=== PATIENT | female | born 1985 | race Caucasian/White ===

== ENCOUNTER 2021-05-07 12:52 | Emergency (ER) | payer MEDICARE, OTHER ==
[2021-05-07 12:56] VITALS: TEMP 98.3
[2021-05-07] MEDS ORDERED: ONDANSETRON 4 MG/2 ML VIAL IVP STA (13:09)
[2021-05-07] MEDS ORDERED: SODIUM CHLORIDE 0.9% 500 ML 500 ML IV STA (13:09)
[2021-05-07] MEDS ORDERED: KETOROLAC 15 MG/ML 1 ML VIAL IVP STA (13:10)
--- NOTE | 2021-05-07 13:31 | ED ---
Chest Pain HPI - General Chief Complaint: Chest Pain Stated Complaint: chest pain Time Seen by Provider: 05/07/21 13:05 Source: patient Mode of arrival: ambulatory Limitations: no limitations - History of Present Illness Initial Comments: Patient is a 35-year-old female presenting to the emergency Department with complaints of chest tightness for the past 3 days. She describes it as intermittent over the past 3 days, comes and goes, usually lasts about an hour and then goes away. She describes it as tightness in the center of her chest with radiation up into her neck. She does admit to some shortness of breath along with this. She is also complaining of a headache since been intermittent for the last 1-2 days as well. She states she just had a checkup with her PCP about 4 days ago, she had no complaints then. She does not take any medications, she has no cardiac history. She is a nonsmoker, does not do alcohol or drugs. She denies history of blood clots. She denies any recent travel, no fevers or chills. She does admit to some very mild nausea but no vomiting, no abdominal pain. She denies any visual changes. She denies any f alls or trauma. She has no further complaints at this time. Upon arrival to the ER, her vitals are stable. - Related Data Home Medications Medication Instructions Recorded Confirmed Multivitamins, Thera [Multivitamin 1 tab PO DAILY 05/07/21 05/07/21 (formulary)] Allergies Allergy/AdvReac Type Severity Reaction Status Date / Time No Known Allergies Allergy Verified 05/07/21 13:21 Review of Systems ROS Statement: Those systems with pertinent positive or pertinent negative responses have been documented in the HPI. ROS Other: All systems not noted in ROS Statement are negative. EKG Findings - EKG Comments: EKG Findings:: Sinus tach otherwise normal ECG, no signs of acute ST segment elevation. Ventricular rate 110, DE interval 124, QT 336. Past Medical History Past Medical History: No Reported History History of Any Multi-Drug Resistant Organisms: None Reported Past Surgical History: No Surgical Hx Reported Past Psychological History: No Psychological Hx Reported Smoking Status: Never smoker Past Alcohol Use History: None Reported Past Drug Use History: None Reported General Exam - General Exam Comments Initial Comments: GENERAL: Patient is well-developed and well-nourished. Patient is nontoxic and in no acute distress. HEAD: Atraumatic, normocephalic. EYES: Pupils equal round and reactive to light, extraocular movements intact, sclera anicteric, conjunctiva are normal. Eyelids were unremarkable. ENT: Nares patent, oropharynx clear without exudates. Moist mucous membranes. NECK: Normal range of motion, supple without lymphadenopathy or JVD. LUNGS: Unlabored respirations. Breath sounds clear to auscultation bilaterally and equal. No wheezes rales or rhonchi. HEART: Regular rate and rhythm without murmurs, rubs or gallops. ABDOMEN: Soft, nontender, normoactive bowel sounds. No guarding, no rebound. No masses appreciated. : Deferred MUSCULOSKELETAL: Normal extremities with adequate strength and normal range of motion, no pitting or edema. No clubbing or cyanosis. NEUROLOGICAL: Patient is alert and oriented x 3. Motor and sensory are also intact. Cranial nerves II through XII grossly intact. Symmetrical smile. Normal speech, normal gait. PSYCH: Normal mood, normal affect. SKIN: Warm, Dry, normal turgor, no rashes or lesions noted. Limitations: no limitations Course Vital Signs 05/07/21 05/07/21 05/07/21 12:54 13:07 13:30 Temperature 98.3 F Pulse Rate 127 H 97 Respiratory 16 16 Rate Blood Pressure 152/88 137/93 O2 Sat by Pulse 99 97 Oximetry 05/07/21 05/07/21 05/07/21 13:46 14:00 14:30 Temperature Pulse Rate 101 H 101 H 96 Respiratory 20 20 20 Rate Blood Pressure 134/84 134/84 109/81 O2 Sat by Pulse 97 95 97 Oximetry Chest Pain [facility] Patient is a 35-year-old female here with intermittent chest tightness over the past 3 days. She also admits to some mild shortness of breath and a headache as well. Her vitals are stable. She has no medications, no cardiac history, she is a nonsmoker. Her EKG shows sinus tach at 110, otherwise normal ECG. Labs are all within normal limits including a negative troponin and negative d-dimer. Chest x-ray shows no acute process. Patient was given fluids and Toradol and has been resting comfortably, talking on her phone in no acute distress. I discussed these findings with the patient. Patient has no family history of sudden cardiac events, her risk factors are 0 for cardiac event. Her symptoms are most likely related to costochondritis versus anxiety symptoms. I recommended trial of ibuprofen over the next few days, she can follow up with her PCP. She is agreeable to this plan of care and she is stable for discharge. Case discussed with Dr. Grove. Disposition Clinical Impression: Atypical chest pain Disposition: HOME SELF-CARE Condition: Stable Instructions (If sedation given, give patient instructions): Chest Pain (ED) Additional Instructions: Please return to the Emergency Department if symptoms worsen or any other concerns. Recommend ibuprofen over the next few days. Please follow-up with your primary care physician. Is patient prescribed a controlled substance at d/c from ED?: No Referrals: Tia Hill MD [Primary Care Provider] - 1-2 days Time of Disposition: 14:58
[2021-05-07 13:34] LABS: Basophils % (A) 0 %; Eosinophils # (A) 0.2 k/uL (0-0.7); Eosinophils % (A) 2 %; HCT 42.7 % (34.0-46.0); HGB 14.2 gm/dL (11.4-16.0); Lymphocytes # (A) 1.5 k/uL (1.0-4.8); Lymphocytes % (A) 19 %; MCH 26.9 pg (25.0-35.0); MCHC 33.2 g/dL (31.0-37.0); Mean Platelet Volume 7.7; Monocytes # (A) 0.3 k/uL (0-1.0); Monocytes % (A) 4 %; Neutrophils # (A) 5.8 k/uL (1.3-7.7); Neutrophils % (A) 73 %; Platelet Count 240 k/uL (150-450); RBC 5.27 m/uL (3.80-5.40); RDW 13.4 % (11.5-15.5)
[2021-05-07 13:42] LABS: ALT 25 U/L (4-34); AST 28 U/L (14-36); African American GFR (CKD) >90 (>60 ml/min/1.73 sqM); Albumin 4.8 g/dL (3.5-5.0); Alkaline Phosphatase 100 U/L (38-126); Anion Gap 11 mmol/L; Blood Urea Nitrogen 13 mg/dL (7-17); Carbon Dioxide 26 mmol/L (22-30); Chloride 102 mmol/L (98-107); Glucose 103 mg/dL (74-99); Non-African American GFR(CKD) >90 (>60 ml/min/1.73 sqM); Potassium 4.5 mmol/L (3.5-5.1); Sodium 139 mmol/L (137-145); Total Bilirubin 0.6 mg/dL (0.2-1.3); Total Protein 7.8 g/dL (6.3-8.2)
[2021-05-07 13:47] LABS: INR 0.9 (<1.2); Partial Thromboplastin Time 23.8 sec (22.0-30.0); Prothrombin Time 10.2 sec (9.0-12.0)
[2021-05-07 13:50] VITALS: RESP 20
--- NOTE | 2021-05-07 14:37 | XR ---
EXAMINATION TYPE: XR chest 2V DATE OF EXAM: 05/07/2021 COMPARISON: NONE HISTORY: Chest pain TECHNIQUE: 2 views FINDINGS: Heart and mediastinum are normal. Lungs are clear. Diaphragm is normal. Bony thorax appears normal. There are chest leads. IMPRESSION: Normal chest.
[2021-05-07 14:52] VITALS: BP 109/81; PULSE 96
== END 2021-05-07 15:08 | disposition home or self-care (01) ==
LOC: EC 12:52
DX: R07.89 Other chest pain (principal); R06.02 Shortness of breath; R51.9 Headache, unspecified; R11.0 Nausea
CPT/HCPCS: 36415; 85379; 80053; 83735; 84484; 85025; 85610; 85730; 71046; 99285; 96374; 96375; 96361; J2405; J1885; 93005